=== PATIENT | female | born 1965 | race Caucasian/White ===

== ENCOUNTER 2025-08-31 14:57 | Outpatient (CLI) | payer OTHER, SELFPAY ==
[2025-08-31 18:33] LABS: Hematocrit 44.6 % (37.0-47.0); Hemoglobin 14.2 g/dL (12.0-15.0); Mean Corpuscular HGB Conc 31.8 g/dl (32-36); Mean Corpuscular Hemoglobin 29.9 pg (26-34); Mean Corpuscular Volume 93.9 fl (80-100); Platelet Count Result 279 k/mm3 (150-375); Red Blood Count 4.75 M/mm3 (4.2-5.4); White Blood Count 7.4 K/mm3 (4.5-10.0)
[2025-08-31 18:49] LABS: Alanine Aminotransferase 22 U/L (6-35); Albumin Level 4.8 g/dL (3.5-5.1); Alkaline Phosphatase 65 U/L (38-126); Anion Gap 11 mmol/L (4-12); Aspartate Amino Transferase 40 U/L (14-36); Bilirubin,Total 0.7 mg/dL (0.2-1.3); Blood Urea Nitrogen 13 mg/dL (7-17); Calcium 9.9 mg/dL (8.4-10.2); Carbon Dioxide 26 mmol/L (22-30); Chloride 101 mmol/L (98-107); Cholesterol 270 mg/dL (0-200); Estimated Glomerular Filt Rate > 60; Glucose 93 mg/dL (65-110); HDL Direct 65 mg/dL; Potassium 4.0 mmol/L (3.4-5.0); Sodium 138 mmol/L (137-145); Total Protein 8.8 g/dL (6.3-8.2); Triglycerides 104 mg/dL (<150)
[2025-08-31 19:24] LABS: Hemoglobin A1C 5.3 % (<5.7)
[2025-08-31 19:25] LABS: Thyroid Stimulating Hormone 4.170 uIU/mL (0.465-4.680)
[2025-08-31 19:32] LABS: Free T4 Free Thyroxine 1.22 ng/dL (0.78-2.19)
== END 2025-08-31 14:58 | disposition home or self-care (01) ==
LOC: ANHBWCLAB 14:57
PROVIDERS: PCP Nurse Practitioner Adult Health; Visit Provider Nurse Practitioner Adult Health
DX: Z00.00 Encounter for general adult medical examination without abnormal findings (principal); E66.9 Obesity, unspecified; Z68.30 Body mass index [BMI] 30.0-30.9, adult
CPT/HCPCS: 36415; 80053; 80061; 83036; 84439; 84443; 85027